=== PATIENT | female | born 1985 | race Caucasian/White ===

== ENCOUNTER → 2023-07-15 13:36 | Outpatient (REF) | payer BC, SELFPAY | LOC: HWWDC 13:36 | PROVIDERS: ATTENDING PHYSICIAN Nurse Practitioner Adult Health; FAMILY PHYSICIAN Family Medicine | DX: Z12.31 Encounter for screening mammogram for malignant neoplasm of breast (principal) | CPT/HCPCS: 77063; 77067 ==

== ENCOUNTER → 2023-07-22 10:44 | Outpatient (REF) | payer BC, SELFPAY | LOC: HWRAD 10:44 | PROVIDERS: ATTENDING PHYSICIAN Nurse Practitioner Adult Health; FAMILY PHYSICIAN Family Medicine | DX: N83.8 Other noninflammatory disorders of ovary, fallopian tube and broad ligament (principal) | CPT/HCPCS: 76830; 76856 ==

== ENCOUNTER → 2023-10-11 09:15 | Outpatient (REF) | payer BC, SELFPAY | LOC: RAD 09:15 | PROVIDERS: ATTENDING PHYSICIAN Nurse Practitioner Adult Health; FAMILY PHYSICIAN Family Medicine | DX: N83.209 Unspecified ovarian cyst, unspecified side (principal) | CPT/HCPCS: 76830; 76856 ==

== ENCOUNTER → 2024-09-20 11:59 | Outpatient (REF) | payer BC, SELFPAY | LOC: HWWDC 11:59 | PROVIDERS: ATTENDING PHYSICIAN Nurse Practitioner Adult Health; FAMILY PHYSICIAN Family Medicine | DX: Z12.31 Encounter for screening mammogram for malignant neoplasm of breast (principal) | CPT/HCPCS: 77063; 77067 ==